=== PATIENT | male | born 1960 | race Caucasian/White ===

== ENCOUNTER 2017-09-24 05:04 | Emergency (ER) | payer OTHER ==
[~2017-09-24] VITALS: Ht 180.3 cm; Wt 95.0 kg
[2017-09-24] MEDS ORDERED: BACTRIM,SEPT1 TABLET PO (05:58)
[2017-09-24] MEDS ORDERED: ULTRAM50 MG PO (05:58)
[2017-09-24 07:00] VITALS: BP 132/95
== END 2017-09-24 07:00 | disposition home or self-care (01) ==
LOC: EME 05:04
PROC: 0H96XZZ Drainage of Back Skin, External Approach (ICD-10-PCS; principal; 2017-09-24)
DX: L72.3 Sebaceous cyst (principal); L08.9 Local infection of the skin and subcutaneous tissue, unspecified; E11.9 Type 2 diabetes mellitus without complications
CPT/HCPCS: 99281; 99284